=== PATIENT | female | born 1990 | race Caucasian/White ===

== ENCOUNTER 2020-02-28 04:23 | Day surgery (SDC) | payer OTHER ==
[2020-02-23 14:46] VITALS: BMI 29.2
--- NOTE | 2020-02-27 14:25 | PREOP ---
DATE OF ADMISSION: 02/28/2020 DATE OF SURGERY: 02/28/2020 ADMISSION DIAGNOSES: Chronic sinusitis, turbinate hypertrophy, trini bullosa, hyposmia. HISTORY OF PRESENT ILLNESS: This 29-year-old female has had longstanding nasal and sinus problems. Her symptoms include congestion, mouth breathing, nasal drainage, as well as allergic symptoms and variable hyposmia. She has failed to improve with palpable steroid sprays, oral medications, and had also had turbinate injections in the past. Her CT scan of the paranasal sinuses demonstrates chronic sinusitis as well as significant turbinate hypertrophy with obstruction and bilateral trini bullosa. She is now admitted for surgery. PAST MEDICAL HISTORY: Primary medical doctor is Dr. Oni Helms. She has had a history of asthma. She has undergone previous section. No known problems with general anesthesia. PRESENT MEDICATIONS: Include cetirizine, fluticasone nasal spray, and montelukast. She does not smoke. PHYSICAL EXAMINATION: GENERAL: Patient is a well-developed female in no distress. HEENT: Head is normal. Eyes are clear. Ears are unremarkable. The nose demonstrates deviation of the septum and moderate turbinate hypertrophy bilaterally. The tongue is slightly elevated. The remaining oropharynx and neck are unremarkable. DATA: CT scan of the paranasal sinuses demonstrates chronic ethmoid and maxillary sinusitis and near opacification of both maxillary sinuses bilateral Dominick cells. Thickening of the right frontal sinus mucosa as well as sphenoid disease with sphenoethmoidal narrowing. Mild deviation of the nasal septum to the right. Bilateral inferior turbinate hypertrophy and bilateral trini bullosa of right larger than left. Preoperative labs are pending. ALLERGIES: Formal allergy testing in the past shows significant allergic sensitivities to TREES, DOG and CAT and OTHER EPIDERMALS, as well as DUST MITES and COCKROACHES. IMPRESSION: Chronic pansinusitis, significant inferior turbinate hypertrophy and middle turbinate trini bullosa with obstruction, some deviation of the septum. PLAN: Bilateral endoscopic sinus surgery to address ethmoid maxillary, sphenoid, and frontal sinuses, submucous resection of bilateral inferior turbinates, endoscopic resection of bilateral trini bullosa under general anesthesia and image guidance. INFORMED CONSENT: Patient understands the indications, alternatives, nature of risks and benefits of proposed surgery, potential complications including but not limited to anesthesia, bleeding, infection, recurrence, numbness, reduced sense of smell, eye injury or brain injury were discussed in detail. She understands and accepts these risks and wished to proceed with surgery. Questions were answered fully. JOHN BAUTISTA M.D. NAREN/[id number]
[2020-02-28] MEDS ORDERED: DEXAMETHASONE SOD PHOSPHATE 4 MG/1 ML VIAL ONE (07:22)
[2020-02-28] MEDS ORDERED: ceFAZolin SODIUM 1 GM VIAL ONE (07:22)
[2020-02-28] MEDS ORDERED: PROPOFOL 20 ML ONE ×4 (07:22→10:01)
[2020-02-28] MEDS ORDERED: LIDOCAINE HCL/PF 2% SDV 5ML VIAL ONE (07:22)
[2020-02-28] MEDS ORDERED: SODIUM CHLORIDE 0.9% P/F 10 ML VIAL IJ ONE (07:22)
[2020-02-28] MEDS ORDERED: ePHEDrine SULFATE 50 MG/1 ML AMPULE ONE (07:22)
[2020-02-28] MEDS ORDERED: MIDAZOLAM HCL 2 MG/2 ML SINGLE DOSE VIAL ONE ×2 (07:23)
[2020-02-28] MEDS ORDERED: ROCURONIUM BROMIDE 50 MG/5 ML SYRINGE ONE ×2 (07:23→10:02)
[2020-02-28] MEDS ORDERED: SUCCINYLCHOLINE CHLORIDE 200 MG/10 ML SYRINGE ONE (07:23)
[2020-02-28] MEDS ORDERED: COCAINE HCL 4% TOPICAL SOLUTION 4 ML BOTTLE TP ONE ×3 (07:37→09:19)
[2020-02-28] MEDS ORDERED: LIDOCAINE 1%/EPI 1:100000 (20 ML MULTI DOSE VIAL) ONE (07:42)
[2020-02-28] MEDS ORDERED: SCOPOLAMINE HYDROBROMIDE 1 PATCH PATCH.TD72 ONE (07:44)
[2020-02-28] MEDS ORDERED: ONDANSETRON 4 MG/2 ML VIAL IVPUSH PRN (07:52)
[2020-02-28] MEDS ORDERED: oxyCODONE HCL 5 MG TABLET PO PRN ×2 (07:52)
--- NOTE | 2020-02-28 07:57 | HP ---
History & Physical Update - History History: No Change - Physical Physical: No Change - Assessment Assessment: No Change - Plan Plan: No Change
[2020-02-28] MEDS ORDERED: ACETAMINOPHEN INJECTION 100 ML IVPB ONE (07:59)
[2020-02-28] MEDS ORDERED: LACTATED RINGERS SOLUTION 1,000 ML IV SCH (08:00)
[2020-02-28] MEDS ORDERED: ceFAZolin SODIUM 1 GM VIAL IVPB ONE (08:15)
[2020-02-28] MEDS ORDERED: GLYCOPYRROLATE 0.2 MG/1 ML VIAL ONE (08:44)
[2020-02-28] MEDS ORDERED: NEOSTIGMINE METHYLSULFATE 0.5 MG/ML - 10 ML MDV ONE (08:44)
[2020-02-28] MEDS ORDERED: LIDOCAINE 1%/EPI 1:100000 (50 ML MULTI DOSE VIAL) INF ONE (09:08)
[2020-02-28] MEDS ORDERED: BACITRACIN 15 GM TUBE TOPICAL OINTMENT ONE (09:16)
--- NOTE | 2020-02-28 10:49 | OP ---
Operative Note - Note: Operative Date: 02/28/20 Pre-Operative Diagnosis: chronic sinusitis, middle turbinate trini bullosa, inferior turbinate hypertorphy Findings: middle turbinate trini bullosa, inferior turbinate hypertrophy, soft tissue chronic sinusitis ethmoid, maxillary (with cysts), frontal and sphenoid sinus obstruction Implants: none Post-Operative Diagnosis: Same as Pre-op Surgeon: Alden Larios Anesthesiologist/ANESTHESIOLOGIST PHYSICIAN: Celena Melgar Anesthesia: General Specimens Removed: left middle turbinate, ethmoid and maxillary sinus tissue. right middle turbinate, ethmoid and maxillary sinus tissue. Estimated Blood Loss (mls): 30
[2020-02-28 13:58] VITALS: BP 121/67; PULSE 70; TEMP 98.2
--- NOTE | 2020-02-29 14:42 | PATH ---
Surgical Pathology Report Patient Name: TERESA NORTON [facility]. Rec. #: [id number] /Age/Gender: 1990 (Age: 29) / F Account: [id number] Location: [facility] SURGICAL Taken: 02/28/2020 Received: 02/28/2020 Reported: 02/29/2020 Physicians: Alden Larios M.D. Specimen(s) Received A: LEFT MIDDLE TURBINATE AND ETHMOID TISSUE AND MAXILLARY SINUS TISSUE B: RIGHT MIDDLE TURBINATE AND ETHMOID TISSUE AND MAXILLARY SINUS TISSUE C: RIGHT AND LEFT ETHMOID TISSUE Clinical History Hypertrophy of nasal turbinates Final Diagnosis A. LEFT MIDDLE TURBINATE AND ETHMOID TISSUE AND MAXILLARY SINUS TISSUE, EXCISION: SINONASAL MUCOSA WITH CHRONIC SINUSITIS. PORTIONS OF BONE WITH NO SIGNIFICANT PATHOLOGIC CHANGE. NEGATIVE FOR MALIGNANCY. B. RIGHT MIDDLE TURBINATE AND ETHMOID TISSUE AND MAXILLARY SINUS TISSUE, EXCISION: SINONASAL MUCOSA WITH CHRONIC SINUSITIS. PORTIONS OF BONE WITH NO SIGNIFICANT PATHOLOGIC CHANGE. NEGATIVE FOR MALIGNANCY. C. RIGHT AND LEFT ETHMOID TISSUE, EXCISION: CHRONIC SINUSITIS AND PORTION OF BONE. NEGATIVE FOR MALIGNANCY. Electronically Signed Dot Lam M.D. Gross Description A. Received in formalin labeled "left middle turbinate and ethmoid tissue and maxillary sinus tissue," is a 2.0 x 1.4 x 0.3 cm aggregate of leal-red soft tissue fragments admixed with bone fragments. The specimen is entirely submitted in 2 cassettes as follows: 1-soft tissue fragments; 2-bone fragments, following decalcification. B. Received in formalin labeled "right middle turbinate and ethmoid tissue, maxillary sinus tissue," is a 2.0 x 1.8 x 0.3 cm aggregate of leal-red soft tissue fragments admixed with cartilage and possible bone. The specimen is entirely submitted in 2 cassettes as follows: 1-soft tissue fragments; 2-cartilage and possible bone, following decalcification. C. Received in formalin labeled "right and left ethmoid tissue," is a 0.4 x 0.4 x 0.1 cm aggregate of leal red soft tissue fragments. The formalin is filtered and the specimen is entirely submitted in one cassette. DL/02/28/2020 saudi/02/28/2020
--- NOTE | 2020-03-08 20:14 | OP ---
DATE OF OPERATION: 02/28/2020 PREOPERATIVE DIAGNOSIS: Chronic sinusitis, middle turbinate trini bullosa, inferior turbinate hypertrophy. POSTOPERATIVE DIAGNOSIS: Chronic sinusitis, middle turbinate trini bullosa, inferior turbinate hypertrophy. PROCEDURE: 1. Bilateral endoscopic ethmoidectomy, anterior and posterior. 2. Bilateral endoscopic maxillary antrostomy with removal of tissue. 3. Bilateral endoscopic sphenoidotomy. 4. Right endoscopic frontal sinus exploration. 5. Bilateral endoscopic excision of trini bullosa. 6. Image guidance. 7. Bilateral endoscopic inferior turbinate therapeutic outfracture, with mural cauterization. SURGEON: Alden Larios MD. ANESTHESIOLOGIST: Celena Melgar MD. ANESTHESIA: General via endotracheal tube. INDICATION: This 29-year-old female had longstanding nasal and sinus symptoms which have failed to improve with appropriate medical therapy. Her endoscopic examination demonstrated significant middle and inferior turbinate hypertrophy. There were no polyps. CT scan demonstrated chronic sinusitis involving especially the ethmoid and maxillary sinuses as well as obstruction of the sphenoid and right frontal sinus. She was brought to surgery for treatment. FINDINGS: Chronic sinusitis, middle turbinate trini bullosa right greater than left, inferior turbinate hypertrophy primarily soft tissue. DESCRIPTION OF PROCEDURE: The patient was brought to the operating room was placed on the operating table in supine position. General endotracheal anesthesia was induced to satisfactory level. She was prepped and draped in the usual fashion for surgery. Cocaine 4% was placed topically within the nasal cavities for decongestion. The [employer] image guidance system was set up. The patient's CT scan data was uploaded, and the patient was registered. The image guidance system was used intermittently throughout the case in order to confirm anatomic position and to guide surgical dissection. After the patient was prepped and draped, the nasal pledgets were removed. The nasal endoscopy was performed with 0-degree telescope. There was minimal nasal septal deviation. Significant anterior turbinate hypertrophy was present, primarily soft tissue. Significant middle turbinate hypertrophy was present, consistent with her trini bullosa. Lidocaine with epinephrine 1:100,000 was infiltrated into the middle turbinate as well as the lateral nasal wall. Additional cocaine 4% was placed within the middle meatus. The left paranasal sinuses were first addressed. The middle turbinate was incised with a single knife. The trini bullosa was entered. The surgical scissors were then used to remove the lateral lamella as well as a portion of the anterior middle turbinate. This opened up the infundibulum. The uncinate process was removed, opening up the infundibulum. Left ethmoidectomy was performed using the Xomed microdebrider and the ethmoid forceps. Anterior and then posterior ethmoidectomy was performed. The lamina papyracea and the fovea ethmoidalis were preserved. The sphenoethmoid recess was narrowed and was opened. The maxillary sinus natural ostium was enlarged, cyst was found within. A 70-degree telescope and Giraffe forceps were used to remove all accessible cyst wall. The middle turbinate remnant was cauterized. Attention was then turned toward the right paranasal sinuses. The middle turbinate trini bullosa was first excised, inferior border was cauterized. This was then incised with a sickle knife. The lateral lamella was removed with endoscopic scissors. The remnant was cauterized. With the middle meatus more widely open, the uncinate process was removed. The infundibulum was opened. Anterior and then posterior ethmoidectomies were performed with Xomed microdebrider and the ethmoid forceps. Again, the lamina papyracea and the fovea ethmoidalis were preserved. The sphenoethmoid recess was identified and opened. Finally, the frontal recess was explored with a 70-degree telescope and forceps. The frontal ostium was identified and was observed to be patent by passing the frontal seeker into the frontal sinus. Finally, the right maxillary sinus was opened with antrostomy, the was removed. The maxillary sinus cyst was identified, and then all accessible cyst wall was removed with Giraffe forceps. All sinuses were open, hemostasis was excellent. The inferior turbinates were palpated, and hypertrophy was primarily soft tissue. Therefore, therapeutic outfracture was performed using the [place] elevator followed by neural cauterization with suction cautery performed in an island fashion bilaterally. NasoPore dressings were placed within each ethmoid bed. Folded Telfa gauze coated with bacitracin and joined anteriorly with silk suture were placed in the inferior nasal cavities, keeping the fractured inferior turbinates lateralized. Patient tolerated the procedure well. She was then awakened from general anesthesia, transferred to the PACU in stable condition. Estimated blood loss was 30 mL. She received procedure. Specimens included left middle turbinate, ethmoid and maxillary sinus tissue, as well as right middle turbinate ethmoid and maxillary sinus tissue. There were no complications. ALEDN LARIOS M.D. NAREN/[id number]
== END 2020-02-28 13:25 | disposition home or self-care (01) ==
LOC: JASU-SURG 04:23
PROVIDERS: ATTEND Otolaryngology
PROC: 09TV8ZZ Resection of Left Ethmoid Sinus, Via Natural or Artificial Opening Endoscopic (ICD-10-PCS; 2020-02-28)
PROC: 09TU8ZZ Resection of Right Ethmoid Sinus, Via Natural or Artificial Opening Endoscopic (ICD-10-PCS; 2020-02-28)
PROC: 8E09XBZ Computer Assisted Procedure of Head and Neck Region (ICD-10-PCS; 2020-02-28)
PROC: 09TL8ZZ Resection of Nasal Turbinate, Via Natural or Artificial Opening Endoscopic (ICD-10-PCS; 2020-02-28)
PROC: 8E09XBZ Computer Assisted Procedure of Head and Neck Region (ICD-10-PCS; principal; 2020-02-28 08:00)
DX: J32.9 Chronic sinusitis, unspecified (principal); J34.3 Hypertrophy of nasal turbinates
CPT/HCPCS: 84703; 88304-TC; 88311-TC; 94760; J0131